=== PATIENT | male | born 1970 | race Caucasian/White ===

== ENCOUNTER 2016-11-28 08:16 | Emergency (ER) | payer OTHER ==
[~2016-11-28] VITALS: Ht 185.4 cm; Wt 113.4 kg
[~2016-11-28 08:16] MED LIST: Z.0.NO CURRENT MEDS
[2016-11-28 08:18] VITALS: BP 138/87; PULSE 92; RESP 16; TEMP 98.1; O2SAT 98
[2016-11-28] MEDS ORDERED: RESP: LIDOCAINE HCL 4% PF 5 ML NEB NEB ONE (08:30)
[2016-11-28] MEDS ORDERED: predniSONE 20 MG TAB PO ONE (08:30)
[2016-11-28] MEDS ORDERED: RESP: ALBUTEROL 2.5 MG/IPRATROPIUM 0.5 MG NEB (SCH) INH ONE (08:30)
[2016-11-28 08:31] VITALS: O2SAT 98
--- NOTE | 2016-11-28 08:32 | PD ---
HPI Chief Complaint: Cold / Flu Symptoms Time Seen by Provider: 08:24 Travel History International Travel<30 days: No Contact w/Intl Traveler<30days: No Traveled to known affect area: No History of Present Illness HPI The patient is a 46-year-old male who presents to the emergency department for cough and cold symptoms. The patient states his symptoms started 3 weeks ago Thursday with an upper respiratory infection. The patient states he had nasal congestion, dry nonproductive cough, body aches, and chills and sweats. The patient states the symptoms resolved, over, he continues to have mild nasal congestion and chest congestion. The patient now complains of a productive cough producing "green paste "with continuing chest congestion. The patient denies any chest pain, shortness breath, but does note occasional "wheezing". The patient denies associated nausea, vomiting, diarrhea, or abdominal pain. The patient denies any history of tobacco use. The patient denies any chronic medical problems. PFSH Past Medical History Medical History: Denies Significant Hx Hx Anticoagulant Therapy: No Diabetes: No Diminished Hearing: No Social History Alcohol Use: Yes (1-2 DRINKS A WEEK) Tobacco Use: No Substance Use: No Allergies-Medications (Allergen,Severity, Reaction): Coded Allergies: No Known Allergies (Verified , 11/28/16) Reported Meds & Prescriptions Reported Meds & Active Scripts Active No Active Prescriptions or Reported Medications Review of Systems Except as stated in HPI: all other systems reviewed are Neg General / Constitutional: Positive: Chills HENT: Positive: Congestion Cardiovascular: No: Chest Pain or Discomfort Respiratory: Positive: Cough, Wheezing Gastrointestinal: No: Nausea, Vomiting, Abdominal Pain Musculoskeletal: Positive: Myalgias (myalgias 3 weeks ago which have resolved) Skin: No Rash Physical Exam Narrative GENERAL: Awake, alert, pleasant 46-year-old male who appears his stated age and is in no acute respiratory distress. SKIN: Warm and dry. HEAD: Atraumatic. Normocephalic. EYES: Pupils equal and round. No injection or drainage. ENT: No nasal bleeding or discharge. Mucous membranes pink and moist. NECK: Trachea midline. No JVD. CARDIOVASCULAR: Regular rate and rhythm. No murmur appreciated. RESPIRATORY: No accessory muscle use. Late expiratory wheeze in all 4 lung jo. MUSCULOSKELETAL: No obvious deformities. No clubbing. No cyanosis. No edema. NEUROLOGICAL: Awake and alert. No obvious cranial nerve deficits. Motor grossly within normal limits. Normal speech. PSYCHIATRIC: Appropriate mood and affect; insight and judgment normal. Data Data Last Documented VS Vital Signs Date Time Temp Pulse Resp B/P Pulse Ox O2 Delivery O2 Flow Rate FiO2 11/28/16 08:31 98 Room Air 11/28/16 08:31 18 11/28/16 08:18 98.1 92 138/87 Orders Ecg Monitoring (11/28/16 08:28) Oximetry (11/28/16 08:28) Chest, Single Ap (11/28/16 08:28) Albuterol-Ipratropium Neb (Duoneb Neb) (11/28/16 08:30) Prednisone (Deltasone) (11/28/16 08:30) Lidocaine Pf 4% Neb (Lidocaine Pf 4% Neb (11/28/16 08:30) MDM Medical Decision Making Medical Screen Exam Complete: Yes Emergency Medical Condition: Yes Medical Record Reviewed: Yes Interpretation(s) Chest x-ray is unremarkable Differential Diagnosis Differential diagnosis includes pneumonia, bronchitis, reactive airway disease, URI, viral syndrome, mycoplasma pneumonia. Narrative Course Chest x-ray was obtained. The patient was administered DuoNeb 1 with respiratory lidocaine and prednisone 60 mg orally. The patient was reevaluated at 9 AM, his symptoms had improved. Patient most likely has bronchitis versus mycoplasma pneumonia, therefore, will be placed on prednisone, albuterol telemetry, and Zithromax. He is advised to follow up with a primary physician and return if symptoms worsen or progress. Diagnosis Primary Impression: Bronchitis Patient Instructions: General Instructions Additional Instructions: Albuterol inhaler every 4 hours for the next 5 days. Prednisone and Zithromax as directed. Follow-up with a primary physician. Return if symptoms worsen or progress. Med/Other Pt SpecificInfo: Prescription(s) given Scripts Albuterol 18 GM Inh (Ventolin Hfa 18 GM Inh)90 Mcg/Act Aer2 Puff INH Q4H PRN ( SHORTNESS OF BREATH) #1 INHALER Ref 0 Prov:Davon Enciso MD 11/28/16 Prednisone (Deltasone)20 Mg Tab40 Mg PO DAILY 4 Days Ref 0 Prov:Davon Enciso MD 11/28/16 Azithromycin (Zithromax Z-Teofilo)250 Mg [id number] Mg PO DIRECTED #1 DSPK Ref 0 500 MG (2 tabs) day 1, then 1 tab days 2-5. Prov:Davon Enciso MD 11/28/16 Disposition: 01 DISCHARGE HOME Condition: Stable Davon Enciso MD Nov 28, 2016 08:32
[2016-11-28] MEDS ORDERED: VENTAER INH (09:05)
[2016-11-28] MEDS ORDERED: ZITHTAB PO (09:05)
[2016-11-28] MEDS ORDERED: PRED-503 PO (09:05)
--- NOTE | 2016-11-28 09:48 | RADHPO ---
EXAM DATE/TIME: 11/28/2016 08:36 [facility] COMPARISON: No previous studies available for comparison. INDICATIONS : Cough, congestion. MEDICAL HISTORY : None. SURGICAL HISTORY : None. ENCOUNTER: Initial ACUITY: 3 weeks PAIN SCORE: 0/10 LOCATION: chest FINDINGS: A single view of the chest demonstrates the lungs to be symmetrically aerated without evidence of mas s, infiltrate or effusion. The cardiomediastinal contours are unremarkable. Osseous structures are intact. CONCLUSION: No acute disease. Mervin Morrison MD on November 28, 2016 at 9:46 Board Certified Radiologist. This report was verified electronically.
== END 2016-11-28 09:16 | disposition home or self-care (01) ==
LOC: PHED 08:16
DX: J40 Bronchitis, not specified as acute or chronic (principal)
CPT/HCPCS: 71010; 94664; 99283; J7512

== ENCOUNTER 2017-12-14 19:52 | Emergency (ER) | payer OTHER ==
[~2017-12-14] VITALS: Ht 185.4 cm; Wt 106.0 kg
[~2017-12-14 19:52] MED LIST changes: +PRED-503 PO; +VENTAER INH; -Z.0.NO CURRENT MEDS; +ZITHTAB PO
[2017-12-14 20:02] VITALS: BP 128/73; PULSE 102; RESP 16; TEMP 98.3; O2SAT 99
[2017-12-14] MEDS ORDERED: IBUPROFEN 800 MG TAB PO ONE ×2 (20:45)
--- NOTE | 2017-12-14 20:47 | PD ---
HPI Chief Complaint: Pain: Acute or Chronic Time Seen by Provider: 20:28 Travel History International Travel<30 days: No Contact w/Intl Traveler<30days: No Traveled to known affect area: No History of Present Illness HPI The patient is a 47-year-old male that complains of right knee pain after using a gel pack 3 weeks ago. The patient but the gel pack on because he had anterior knee pain following running. The patient is a runner. This happened about 3 weeks ago, he put the gel pack: Medially and it created a ice burn for which she has redness and loss of hair on that area with a gel pack was next in the knee. He does complain of swelling inside the knee and medial joint line tenderness. He denies any way or locking. Almost 30 years ago he had the lateral meniscus of the right knee removed. REPLACED BY [facility] Past Medical History Hx Anticoagulant Therapy: No Diabetes: No Diminished Hearing: No ?: Not Social History Alcohol Use: Yes (1-2 DRINKS A WEEK) Tobacco Use: No Substance Use: No Allergies-Medications (Allergen,Severity, Reaction): Coded Allergies: No Known Allergies (Verified Adverse Reaction, Unknown, 12/14/17) Reported Meds & Prescriptions Reported Meds & Active Scripts Active Ibuprofen 800 Mg Tab 800 Mg PO TID Review of Systems Except as stated in HPI: all other systems reviewed are Neg Physical Exam Narrative GENERAL: The patient is alert, oriented 3 and slight apparent distress with his right knee discomfort. His vital signs are normal except for heart rate of 102. SKIN: Focused skin assessment warm/dry. There is an erythematous, first-degree burn-appearing area over the medial knee. It is rectangular in shape, apparently the same configuration that the gel pack was directly on the skin. HEAD: Atraumatic. Normocephalic. EYES: Pupils equal and round. No scleral icterus. No injection or drainage. ENT: No nasal bleeding or discharge. Mucous membranes pink and moist. NECK: Trachea midline. No JVD. CARDIOVASCULAR: Regular rate and rhythm. No murmur appreciated. RESPIRATORY: No accessory muscle use. Clear to auscultation. Breath sounds equal bilaterally. GASTROINTESTINAL: Abdomen soft, non-tender, nondistended. Hepatic and splenic margins not palpable. MUSCULOSKELETAL: No obvious deformities. No clubbing. No cyanosis. No edema. The right knee shows 30 loss of flexion because of pain and pain on extension with 10 loss of extension. There is considerable medial joint line tenderness present. He does appear to have an effusion. There is no erythema present. There is no lateral joint line tenderness or posterior tenderness present. No cord is palpated in the calf and there is no lower leg swelling. Collaterals, drawer, Elie all show intact testing. NEUROLOGICAL: Awake and alert. No obvious cranial nerve deficits. Motor grossly within normal limits. Normal speech. PSYCHIATRIC: Appropriate mood and affect; insight and judgment normal. Data Data Last Documented VS Vital Signs Date Time Temp Pulse Resp B/P (MAP) Pulse Ox O2 Delivery O2 Flow Rate FiO2 12/14/17 20:02 98.3 102 16 128/73 (91) 99 Orders Orders Ibuprofen (Motrin) (12/14/17 20:45) Ibuprofen (Motrin) (12/14/17 20:45) Knee, Complete (4vws) (12/14/17 20:47) Splint Or Brace Apply/Monitor (12/14/17 20:50) Ed Discharge Order (12/14/17 21:54) MDM Medical Decision Making Medical Screen Exam Complete: Yes Emergency Medical Condition: Yes Medical Record Reviewed: Yes Interpretation(s) X-rays of the right knee show no acute findings, chondrocalcinosis this present. Differential Diagnosis Right knee effusion, skin burn knee, torn medial meniscus, fracture knee Narrative Course The patient has a right knee effusion. It is possible he has a medial meniscus tear. He could, being a runner, also have degeneration of the medial meniscus as well. He has already lost his lateral meniscus many years ago. He will need orthopedics to evaluate this in the, possibly by MRI or arthroscopy. Diagnosis Primary Impression: Effusion, right knee Additional Instructions: The patient has a right knee effusion. He will need to rest and follow-up with orthopedics. There is a possibility of cartilage degeneration with the medial meniscus as well. Take the Motrin, 1 tablet 3 times daily to develop high anti- inflammatory levels. Med/Other Pt SpecificInfo: Prescription(s) given Scripts Ibuprofen (Ibuprofen) 800 Mg Tab 800 MG PO TID, #43 TAB 0 Refills Prov: Ron Bauman MD 12/14/17 Disposition: 01 DISCHARGE HOME Condition: Stable oRn Bauman MD Dec 14, 2017 20:47
--- NOTE | 2017-12-14 21:41 | RADRPT ---
EXAM DATE/TIME: 12/14/2017 20:50 [facility] COMPARISON: No previous studies available for comparison. INDICATIONS : Anterior and medial right knee pain after running 3 weeks ago. MEDICAL HISTORY : None. SURGICAL HISTORY : None. ENCOUNTER: Initial ACUITY: 3 weeks PAIN SCORE: 5/10 LOCATION: Right knee. FINDINGS: Four view examination of the right knee demonstrates no evidence of fracture or dislocation. Bony mi neralization is normal. The articular surfaces are intact. The suprapatellar soft tissues have a no rmal configuration. CONCLUSION: 1. No acute findings. Chondrocalcinosis present. Jesus Hernandez MD on December 14, 2017 at 21:39 Board Certified Radiologist. This report was verified electronically.
[2017-12-14 21:45] VITALS: BP 121/90; PULSE 88; RESP 14; O2SAT 99
[2017-12-14] MEDS ORDERED: IBUP1TAB7 PO (21:50)
== END 2017-12-14 22:12 | disposition home or self-care (01) ==
LOC: PHED 19:52
DX: M25.461 Effusion, right knee (principal)
CPT/HCPCS: 73564; 99283